=== PATIENT | female | born 1960 | race Caucasian/White ===

== ENCOUNTER 2023-01-31 12:58 | Emergency (ER) | payer MEDICAID, SELFPAY ==
[2023-01-31 13:02] VITALS: BP 137/89; PULSE 85; RESP 20; TEMP 36.8; O2SAT 97; BMI 27.5
--- NOTE | 2023-01-31 13:20 | CT_ITS ---
The [address] [address] Patient Name: NANCY CANTU MRN: [id number] date: 1960 Sex: F Assigned Patient Location: ER Current Patient Location: ER Accession/Order Number: [id number] Exam Date: 01/31/2023 13:45 Report Date: 01/31/2023 14:01 At the request of: SLY HOLT Procedure: CT head/brain wo con TITLE: CT head/brain wo con COMPARISON: None. CLINICAL HISTORY: Headache, facial pain TECHNIQUE: 3 mm axial images without contrast. Automated exposure control was utilized. Dose reduction techniques were achieved by using automated exposure control and/or adjustment of mA and/or kV according to patient size and/or use of iterative reconstruction technique. FINDINGS: There is no mass, mass effect, parenchymal hemorrhage, nor subarachnoid hemorrhage. The extra-axial and extracranial structures appear normal. The CSF spaces are unremarkable. The skeletal structures are intact. IMPRESSION: NO ACUTE INTRACRANIAL FINDINGS BY CT HEAD WITHOUT CONTRAST Electronically authenticated by: ANA MARIA MILLAN Date: 01/31/2023 14:01
--- NOTE | 2023-01-31 13:21 | ED_ITS ---
HPI - General Adult General Chief complaint: Ear Stated complaint: EAR PAIN Time Seen by Provider: 01/31/23 13:02 Source: patient Mode of arrival: walk-in Limitations: no limitations History of Present Illness HPI narrative: 62 year old female presents to the ED for pain to her right ear that radiates to her right cheek and below the right eye. She has intermittent pain, N/T to the left lower side of her face as well. Onset was a few weeks ago. The discomfort to the right ear area has become worse the past few days. She has been having sinus issues since August,. She has been to an nutritionist public health and ENT. She last saw her ENT Friday01/24/23. She saw her pcp within the past 1-2 weeks as well. She takes Radha daily and prednisone 5 mg daily. Denies fever, chills, weakness, vision changes. Denies ear drainage, itching. Denies cough, sore throat, dental pain. States her sinus congestion/drainage has improved. At times she also has tenderness to her scalp. Rates her pain 6/10 at this time. Her pain is typically worse in the morning. Reports her ENT was going to order a CT scan for her, but is awaiting insurance approval. Onset (ago): week(s) Location: Reports head and face Radiation: Reports non-radiation Quality: Reports stabbing and sharp Associated symptoms: Reports headaches; Denies confusion, chest pain, cough, fever/chills, loss of appetite, nausea/vomiting, shortness of breath or weakness Related Data Home Medications Medication Instructions Recorded Confirmed cetirizine 10 mg tablet 10 mg PO Q12H 01/31/23 01/31/23 lisinopril 5 mg tablet 5 mg PO DAILY 01/31/23 01/31/23 metformin 500 mg tablet 500 mg PO BID 01/31/23 01/31/23 rosuvastatin 10 mg tablet 10 mg PO DAILY 01/31/23 01/31/23 trazodone 50 mg tablet 25 mg PO DAILY 01/31/23 01/31/23 Allergies Allergy/AdvReac Type Severity Reaction Status Date / Time aspirin Allergy Intermediate Verified 01/31/23 13:08 ciprofloxacin [From Cipro] Allergy Intermediate Verified 01/31/23 13:08 codeine Allergy Intermediate Verified 01/31/23 13:08 ibuprofen Allergy Intermediate Verified 01/31/23 13:08 morphine Allergy Intermediate Verified 01/31/23 13:08 Penicillins Allergy Intermediate Verified 01/31/23 13:08 Review of Systems ROS Constitutional Denies: fever, chills or fatigue Eyes Denies: change in vision, blurry vision, light sensitivity, eye discomfort or eye discharge Ears, nose, mouth, and throat Reports: ear pain; Denies: throat pain, neck pain, throat swelling, difficulty swallowing, mouth pain, swelling of lips/tongue, ear discharge, change in hearing, vertigo or nasal discharge Cardiovascular Denies: chest pain Respiratory Denies: shortness of breath or cough Gastrointestinal Denies: nausea or vomiting Musculoskeletal Denies: neck pain Integumentary/Breast Reports: skin tenderness; Denies: rash, itching, skin swelling or sores Neurological Reports: headache; Denies: numbness in extremities, weakness in extremities, dizziness, vertigo, confusion or slurred speech Allergic/Immunologic Reports: seasonal allergies [facility] Medical History (Updated 01/31/23 @ 13:32 by Filippo Mary) Surgical History (Updated 01/31/23 @ 13:32 by Filippo Mary) Exam Constitutional: Vital Signs, click to edit/add: Vital Signs - 24 hr 01/31/23 13:02 Temperature 98.2 F Pulse Rate [Monito r] 85 Respiratory Rate 20 Blood Pressure [Ri ght Arm] 137/89 H Pulse Oximetry 97 Oxygen Delivery Me thod Room Air Common normals: no apparent distress, oriented x3 and alert Exam limitations: no altered mental status General appearance: cooperative and well developed; not in distress and not ill appearing HENMT: Common normals: normocephalic, head/scalp atraumatic, hearing grossly normal bilaterally, external ears normal, TMs normal bilaterally, external nose normal, moist oral mucous membranes, oropharynx normal, dentition normal and gingiva normal Head and scalp: normal to inspection Face and sinus: normal facial exam, sinuses nontender, face symmetric and TMJ findings nontender: bilateral; no sinus tenderness, no facial erythema and no facial edema Nose: external nose normal Tympanic membrane: TMs normal bilaterally Mouth: oral and palatal mucosa normal, lip normal and tongue normal; no drooling Throat: uvula midline Neck & C-Spine: Common normals: full ROM General: normal visual inspection Cervical spine: cervical ROM normal Respiratory: Common normals: normal respiratory effort Cardio: Rate: regular rate Skin: Common normals: no rashes or lesions noted, no wounds and no jaundice Course Vital Signs Vital signs: Vital Signs Temperature 98.2 F 01/31/23 13:02 Pulse Rate 85 01/31/23 13:02 Respiratory Rate 20 01/31/23 13:02 Blood Pressure 137/89 H 01/31/23 13:02 Pulse Oximetry 97 01/31/23 13:02 Oxygen Delivery Method Room Air 01/31/23 13:02 Temperature 98.2 F 01/31/23 13:02 Pulse Rate 85 01/31/23 13:02 Respiratory Rate 20 01/31/23 13:02 Blood Pressure 137/89 H 01/31/23 13:02 Pulse Oximetry 97 01/31/23 13:02 Oxygen Delivery Method Room Air 01/31/23 13:02 Medical Decision Making Medical Records Medical records reviewed: Yes I reviewed the patient's medical records Discharge Plan Discharge Chief Complaint: Ear Prescriptions / Home Meds: No Action metformin 500 mg tablet 500 mg PO BID lisinopril 5 mg tablet 5 mg PO DAILY trazodone 50 mg tablet 25 mg PO DAILY cetirizine 10 mg tablet 10 mg PO Q12H rosuvastatin 10 mg tablet 10 mg PO DAILY Referrals: Bucky Lang MD [Primary Care Provider] - 1 week
--- NOTE | 2023-01-31 15:18 | ED_ITS ---
Documented by User: Sly Holt 01/31/23 16:19 HPI - General Adult General Chief complaint: Ear Stated complaint: EAR PAIN Time Seen by Provider: 01/31/23 13:02 Source: patient Mode of arrival: walk-in Limitations: no limitations History of Present Illness HPI narrative: 62 year old female presents to the ED for pain to her right ear that radiates to her right cheek and below the right eye. She has intermittent pain, N/T to the left lower side of her face as well. Onset was a few weeks ago. The discomfort to the right ear area has become worse the past few days. She has been having sinus issues since August,. She has been to an supervisor sanding and ENT. She last saw her ENT Friday01/24/23. She saw her pcp within the past 1-2 weeks as well. She takes Radha daily and prednisone 5 mg daily. Denies fever, chills, weakness, vision changes. Denies ear drainage, itching. Denies cough, sore throat, dental pain. States her sinus congestion/drainage has improved. At times she also has tenderness to her scalp. Rates her pain 6/10 at this time. Her pain is typically worse in the morning. Reports her ENT was going to order a CT scan for her, but is awaiting insurance approval. Onset (ago): week(s) Location: Reports head and face Radiation: Reports non-radiation Quality: Reports stabbing and sharp Associated symptoms: Reports headaches; Denies confusion, chest pain, cough, fever/chills, loss of appetite, nausea/vomiting, shortness of breath or weakness Related Data Home Medications Medication Instructions Recorded Confirmed cetirizine 10 mg tablet 10 mg PO Q12H 01/31/23 01/31/23 lisinopril 5 mg tablet 5 mg PO DAILY 01/31/23 01/31/23 metformin 500 mg tablet 500 mg PO BID 01/31/23 01/31/23 rosuvastatin 10 mg tablet 10 mg PO DAILY 01/31/23 01/31/23 trazodone 50 mg tablet 25 mg PO DAILY 01/31/23 01/31/23 Allergies Allergy/AdvReac Type Severity Reaction Status Date / Time aspirin Allergy Intermediate Verified 01/31/23 13:08 ciprofloxacin [From Cipro] Allergy Intermediate Verified 01/31/23 13:08 codeine Allergy Intermediate Verified 01/31/23 13:08 ibuprofen Allergy Intermediate Verified 01/31/23 13:08 morphine Allergy Intermediate Verified 01/31/23 13:08 Penicillins Allergy Intermediate Verified 01/31/23 13:08 Review of Systems ROS Constitutional Denies: fever, chills or fatigue Eyes Denies: change in vision, blurry vision, light sensitivity, eye discomfort or eye discharge Ears, nose, mouth, and throat Reports: ear pain; Denies: throat pain, neck pain, throat swelling, difficulty swallowing, mouth pain, swelling of lips/tongue, ear discharge, change in hearing, vertigo or nasal discharge Cardiovascular Denies: chest pain or shortness of breath with exertion Respiratory Denies: shortness of breath or cough Gastrointestinal Denies: nausea, vomiting or difficulty swallowing Musculoskeletal Denies: neck pain Integumentary/Breast Reports: skin tenderness; Denies: rash, itching, skin swelling or sores Neurological Reports: headache; Denies: numbness in extremities, weakness in extremities, dizziness, vertigo, confusion or slurred speech Endocrine Denies: fatigue Allergic/Immunologic Reports: seasonal allergies; Denies: throat swelling [facility] Medical History (Updated 01/31/23 @ 15:29 by Sly Holt) Surgical History (Updated 01/31/23 @ 13:32 by Filippo Mary) Exam Constitutional: Vital Signs, click to edit/add: Vital Signs - 24 hr 01/31/23 13:02 Temperature 98.2 F Pulse Rate [Monito r] 85 Respiratory Rate 20 Blood Pressure [Ri ght Arm] 137/89 H Pulse Oximetry 97 Oxygen Delivery Me thod Room Air Common normals: no apparent distress, oriented x3 and alert Exam li mitations: no altered mental status General appearance: cooperative and well developed; not in distress and not ill appearing HENMT: Common normals: normocephalic, head/scalp atraumatic, hearing grossly normal bilaterally, external ears normal, TMs normal bilaterally, external nose normal, moist oral mucous membranes, oropharynx normal, dentition normal and gingiva normal Head and scalp: normal to inspection, normocephalic and atraumatic Face and sinus: normal facial exam, sinuses nontender, face symmetric and TMJ findings nontender: bilateral; no sinus tenderness, no facial erythema and no facial edema Nose: external nose normal External ear: external ears normal Tympanic membrane: TMs normal bilaterally Mouth: oral and palatal mucosa normal, lip normal, tongue normal and TMJ findings TMJ Findings: nontender: bilateral; no drooling Throat: uvula midline Neck & C-Spine: Common normals: full ROM General: normal visual inspection Cervical spine: cervical ROM normal Respiratory: Common normals: normal respiratory effort Cardio: Common normals: regular rate Rate: regular rate Neuro: Common normals: oriented x3 Sensorium/orientation: alert Skin: Common normals: no rashes or lesions noted, no wounds and no jaundice General skin exam: no rashes or lesions noted Course Vital Signs Vital signs: Vital Signs Temperature 98.2 F 01/31/23 13:02 Pulse Rate 85 01/31/23 13:02 Respiratory Rate 20 01/31/23 13:02 Blood Pressure 137/89 H 01/31/23 13:02 Pulse Oximetry 97 01/31/23 13:02 Oxygen Delivery Method Room Air 01/31/23 13:02 Temperature 98.2 F 01/31/23 13:02 Pulse Rate 85 01/31/23 13:02 Respiratory Rate 20 01/31/23 13:02 Blood Pressure 137/89 H 01/31/23 13:02 Pulse Oximetry 97 01/31/23 13:02 Oxygen Delivery Method Room Air 01/31/23 13:02 Medical Decision Making MDM Narrative Medical decision making narrative: CT scan of the head was negative for acute findings. The patient requested something for her discomfort here in the ED. She was in agreement with an injection of Toradol. She was driving herself today which limited her pain treatment options here. She was encouraged to follow up with her pcp and ENT for a recheck, further evaluation and treatment. Medical Records Medical records reviewed: Yes I reviewed the patient's medical records Imaging Data CT scan - head: Radiologist's impression: Patient Name: NANCY CANTU MRN: [id number] date: 1960 Sex: F Assigned Patient Location: ER Current Patient Location: ER Accession/Order Number: [id number] Exam Date: 01/31/2023 13:45 Report Date: 01/31/2023 14:01 At the request of: SLY HOLT Procedure: CT head/brain wo con TITLE: CT head/brain wo con COMPARISON: None. CLINICAL HISTORY: Headache, facial pain TECHNIQUE: 3 mm axial images without contrast. Automated exposure control was utilized. Dose reduction techniques were achieved by using automated exposure control and/or adjustment of mA and/or kV according to patient size and/or use of iterative reconstruction technique. FINDINGS: There is no mass, mass effect, parenchymal hemorrhage, nor subarachnoid hemorrhage. The extra-axial and extracranial structures appear normal. The CSF spaces are unremarkable. The skeletal structures are intact. IMPRESSION: NO ACUTE INTRACRANIAL FINDINGS BY CT HEAD WITHOUT CONTRAST Electronically authenticated by: ANA MARIA MILLAN Date: 01/31/2023 14:01 Discharge Plan Discharge Chief Complaint: Ear Clinical Impression: Facial pain, Ear pain, right Patient Disposition: Home, Self-Care Time of Disposition Decision: 15:28 Condition: Good Mode of Transportation: Private Vehicle Prescriptions / Home Meds: No Action metformin 500 mg tablet 500 mg PO BID lisinopril 5 mg tablet 5 mg PO DAILY trazodone 50 mg tablet 25 mg PO DAILY cetirizine 10 mg tablet 10 mg PO Q12H rosuvastatin 10 mg tablet 10 mg PO DAILY Instructions: Trigeminal Neuralgia (ED), Earache (ED) Additional Instructions: Follow up with your ENT for a recheck, further evaluation and treatment. Stand Alone Forms: Portal Instructions Referrals: Bucky Lang MD [Primary Care Provider] - 1 week Discharge Date/Time: 01/31/23 15:39 Documented by User: Rick Fairchild MD 01/31/23 19:39 HPI - General Adult General Chief complaint: Ear Stated complaint: EAR PAIN Time Seen by Provider: 01/31/23 13:02 Related Data Home Medications Medication Instructions Recorded Confirmed cetirizine 10 mg tablet 10 mg PO Q12H 01/31/23 01/31/23 lisinopril 5 mg tablet 5 mg PO DAILY 01/31/23 01/31/23 metformin 500 mg tablet 500 mg PO BID 01/31/23 01/31/23 rosuvastatin 10 mg tablet 10 mg PO DAILY 01/31/23 01/31/23 trazodone 50 mg tablet 25 mg PO DAILY 01/31/23 01/31/23 Allergies Allergy/AdvReac Type Severity Reaction Status Date / Time aspirin Allergy Intermediate Verified 01/31/23 13:08 ciprofloxacin [From Cipro] Allergy Intermediate Verified 01/31/23 13:08 codeine Allergy Intermediate Verified 01/31/23 13:08 ibuprofen Allergy Intermediate Verified 01/31/23 13:08 morphine Allergy Intermediate Verified 01/31/23 13:08 Penicillins Allergy Intermediate Verified 01/31/23 13:08 [facility] Medical History (Updated 01/31/23 @ 15:29 by Sly Holt) Surgical History (Updated 01/31/23 @ 13:32 by Filippo Mary) Exam Constitutional: Vital Signs, click to edit/add: Vital Signs - 24 hr 01/31/23 13:02 Temperature 98.2 F Pulse Rate [Monito r] 85 Respiratory Rate 20 Blood Pressure [Ri ght Arm] 137/89 H Pulse Oximetry 97 Oxygen Delivery Me thod Room Air Course Vital Signs Vital signs: Vital Signs Temperature 98.2 F 01/31/23 13:02 Pulse Rate 85 01/31/23 13:02 Respiratory Rate 20 01/31/23 13:02 Blood Pressure 137/89 H 01/31/23 13:02 Pulse Oximetry 97 01/31/23 13:02 Oxygen Delivery Method Room Air 01/31/23 13:02 Temperature 98.2 F 01/31/23 13:02 Pulse Rate 85 01/31/23 13:02 Respiratory Rate 20 01/31/23 13:02 Blood Pressure 137/89 H 01/31/23 13:02 Pulse Oximetry 97 01/31/23 13:02 Oxygen Delivery Method Room Air 01/31/23 13:02 Critical Care Time Critical Care Time Attestation: I, Dr Fairchild, have reviewed the above progress note and course of action in the ER; agree with the above. I have personally seen and evaluated this patient, gone over history and physical, and discussed disposition and treatment plan with the patient. Discharge Plan Discharge Chief Complaint: Ear Clinical Impression: Facial pain, Ear pain, right Patient Disposition: Home, Self-Care Time of Disposition Decision: 15:28 Condition: Good Mode of Transportation: Private Vehicle Prescriptions / Home Meds: No Action metformin 500 mg tablet 500 mg PO BID lisinopril 5 mg tablet 5 mg PO DAILY trazodone 50 mg tablet 25 mg PO DAILY cetirizine 10 mg tablet 10 mg PO Q12H rosuvastatin 10 mg tablet 10 mg PO DAILY Instructions: Trigeminal Neuralgia (ED), Earache (ED) Additional Instructions: Follow up with your ENT for a recheck, further evaluation and treatment. Stand Alone Forms: Portal Instructions Referrals: Bucky Lang MD [Primary Care Provider] - 1 week Discharge Date/Time: 01/31/23 15:39
== END 2023-01-31 15:39 | disposition home or self-care (01) ==
PROVIDERS: Emergency Provider Emergency Medicine; PCP Family Medicine
DX: R51.9 Headache, unspecified (principal); H92.01 Otalgia, right ear; Z79.899 Other long term (current) drug therapy; Z79.84 Long term (current) use of oral hypoglycemic drugs
CPT/HCPCS: 70450; 96372; 99284

== ENCOUNTER 2023-03-11 13:44 | Outpatient (OUT) | payer MEDICAID, SELFPAY ==
--- NOTE | 2023-03-11 13:51 | US_ITS ---
The [place] [id number] Patient Name: NANCY CANTU MRN: [id number] date: 1960 Sex: F Assigned Patient Location: US Current Patient Location: US Accession/Order Number: [id number] Exam Date: 03/11/2023 14:00 Report Date: 03/11/2023 15:23 At the request of: SHAIKH CHAS Procedure: US venous doppler LE LT EXAMINATION: US venous doppler LE LT HISTORY: Left Leg Pain M79.605 COMPARISON: No relevant comparison available. FINDINGS: REGION: Left lower extremity THROMBI: None. COMPRESSIBILITY: Normal compressibility. FLOW: Normal waveform and antegrade flow between 5 and 20 cm/s. OTHER: None. US/US venous doppler LE LT IMPRESSION: 1. No deep vein thrombus within the left lower extremity. Electronically authenticated by: EYLA PATTEN Date: 03/11/2023 15:23
== END 2023-03-11 13:45 | disposition home or self-care (01) ==
LOC: US 13:46
PROVIDERS: PCP Family Medicine; Visit Provider Internal Medicine
DX: M79.605 Pain in left leg (principal)
CPT/HCPCS: 93971